=== PATIENT | male | born 1980 | race African-American/Black ===

== ENCOUNTER → 2017-01-29 | Outpatient (CLI) | payer OTHER ==
--- NOTE | 2017-01-31 09:08 | REP ---
MRI bilateral femur without contrast: History: Question partial tear. Three day history bilateral hamstring pain football injury. Bilateral audible pops. Bruising at the medial hamstring tendon. Request MRI bilateral hamstrings for partial tear. Technique: Axial, sagittal, and coronal imaging planes were utilized. T1 and T2-weighted scans were obtained through the femurs bilaterally with and without fat saturation. MRI findings: There is a bone island in the proximal femur on the right. There is an incidental 2.8 x 1.5 x 1.4 cm lesion in the distal femoral diaphysis. This has sharply circumscribed with low T1 and heterogeneously increased T2 signal. No endosteal scalloping is seen. No periosteal reaction or adjacent marrow edema is observed. The lesion is felt to be compatible with a small benign enchondroma. There is another incidental bone island in the distal femur on the right. Cortical and medullary bone signal intensity are normal on the left. The proximal hamstring tendon insertions are unremarkable bilaterally on T1 and T2-weighted scans. However, there are distal hamstring injuries bilaterally and fairly symmetrically at the level of the distal thigh. There are hematomas in the medial aspect of the biceps femoris muscle bilaterally. The hematoma is larger on the left measuring 3.5 x 2.8 x 4.7 cm. On the right the of focal muscle injury measures 1.5 x 1.6 x 2.1 cm. The injury is a myofascial insertion bilaterally bordering on the semitendinosus muscle belly. No other abnormalities seen. Impression: 1. Bilateral distal biceps femoris partial muscle tears. Resulting hematoma is a little larger on the left than the right. 2. Incidental findings include a large bone island in the proximal femur on the right and a enchondroma in the distal femur on the right. Signed by Jessee Bonilla MD 01/31/2017 03:50 P
== END ==
LOC: M RAD 11:02
PROVIDERS: ATTEND Physician Assistant
DX: S86.811A Strain of other muscle(s) and tendon(s) at lower leg level, right leg, initial encounter (principal); S86.812A Strain of other muscle(s) and tendon(s) at lower leg level, left leg, initial encounter; D16.21 Benign neoplasm of long bones of right lower limb; X58.XXXA Exposure to other specified factors, initial encounter; Y92.9 Unspecified place or not applicable; Y93.61 Activity, american tackle football; Y99.9 Unspecified external cause status

== ENCOUNTER 2017-10-24 07:15 | Emergency (ER) | payer OTHER ==
[2017-10-24] MEDS: ALBUTEROL SULFATE 2.5 MG/0.5 ML INH NEB SOLN NEB (07:48)
[2017-10-24] MEDS: KETOROLAC 30 MG/ML VIAL (J1885) IV (08:07)
[2017-10-24 08:14] LABS: BASO % 0.3 % (0.0-1.0); EOS # 0.2 10^3/uL (0.0-0.50); EOS % 1.3 % (0.0-3.0); HEMATOCRIT 45.5 % (42.0-52.0); HEMOGLOBIN 14.8 g/dl (13.5-17.5); IMMATURE GRANULOCYTE % 0.5 % (0-3.0); LYMPH # 3.9 10^3/uL (1.5-4.5); LYMPH % 29.2 % (24.0-44.0); MEAN CORPUSCULAR HEMOGLOBIN 28.5 pg (27.0-33.0); MEAN CORPUSCULAR HGB CONC 32.5 g/dl (32.0-36.5); MEAN CORPUSCULAR VOLUME 87.5 fl (80.0-96.0); MONO % 7.8 % (0.0-5.0); NEUTROPHILS # 8.1 10^3/uL (1.8-7.7); NEUTROPHILS % 60.9 % (36.0-66.0); PLATELET COUNT, AUTOMATED 229 10^3/uL (150-450); RED CELL DISTRIBUTION WIDTH 12.8 % (11.5-14.5); WHITE BLOOD COUNT 13.3 10^3/uL (4.0-10.0)
[2017-10-24] MEDS: cefTRIAXone SOD 1 GM in D5W MINI-BAG PLUS 50 ML IV (08:30)
[2017-10-24 09:16] LABS: ALBUMIN 3.8 GM/DL (3.2-5.2); ALBUMIN/GLOBULIN RATIO 0.93 (1.00-1.93); ALKALINE PHOSPHATASE 82 U/L (45-117); ALT/SGPT 15 U/L (12-78); ANION GAP 7 MEQ/L (8-16); AST/SGOT 19 U/L (7-37); BILIRUBIN,TOTAL 0.5 MG/DL (0.2-1.0); BLOOD UREA NITROGEN 15 MG/DL (7-18); CALCIUM LEVEL 8.9 MG/DL (8.5-10.1); CARBON DIOXIDE LEVEL 29 MEQ/L (21-32); CHLORIDE LEVEL 105 MEQ/L (98-107); CK-MB VALUE MASS < 1.0 NG/ML (<3.6); CPK CREATINE PHOSPHOKINASE 121 U/L (39-308); CREATININE FOR GFR 1.27 MG/DL (0.70-1.30); GLOMERULAR FILTRATION RATE > 60.0 (>60); GLUCOSE, FASTING 95 MG/DL (70-100); MB/CK RELATIVE INDEX 0.82 (< OR =4); POTASSIUM SERUM 4.4 MEQ/L (3.5-5.1); SODIUM LEVEL 141 MEQ/L (136-145); TOTAL PROTEIN 7.9 GM/DL (6.4-8.2); TROPONIN I < 0.02 NG/ML (< 0.10)
[2017-10-24] MEDS ORDERED: ISOVUE-370 76% 100ML VIAL (Q9967) As Ordered (09:18)
== END 2017-10-24 10:17 | disposition home or self-care (01) ==
LOC: M ED 07:15
DX: J18.9 Pneumonia, unspecified organism (principal); I49.9 Cardiac arrhythmia, unspecified; F17.200 Nicotine dependence, unspecified, uncomplicated
CPT/HCPCS: Q9967